=== PATIENT | female | born 1945 | race Hispanic/Latino ===

== ENCOUNTER 2016-12-06 08:20 | Day surgery (SDC) | payer MEDICARE, OTHER ==
--- NOTE | 2016-12-06 11:38 | History and Physical Report ---
History of Present Illness Date of examination: 12/06/16 Chief complaint: rt. thyroid nodule Medications and Allergies Allergies Allergy/AdvReac Type Severity Reaction Status Date / Time No Known Allergies Allergy Verified 12/06/16 08:41 Home Medications Medication Instructions Recorded Confirmed Last Taken Type Biotin [Biotin] 1 cap PO DAILY 12/06/16 12/06/16 12/05/16 History 1 cap Cimetidine (Nf) [Tagamet (Nf)] 300 mg PO BID 12/06/16 12/06/16 12/05/16 History 300mg Clobetasol Propionate [Clobetasol 5 ml TRANSDERMA DAILY 12/06/16 12/06/16 History Propionate] 5ml Fexofenadine/Pseudoephedrine 1 tab PO DAILY 12/06/16 12/06/16 12/05/16 History [Haily-D 12 Hour Tablet] Levothyroxine [Synthroid] 112 mcg PO DAILY 12/06/16 12/06/16 12/05/16 History 112mcg Lovastatin Tab [Mevacor Tab] 40 mg PO DAILY 12/06/16 12/06/16 12/05/16 History Exam Vital Signs Temp Pulse Resp BP Pulse Ox 97.7 F 64 16 135/74 96 12/06/16 08:40 12/06/16 08:40 12/06/16 08:40 12/06/16 08:40 12/06/16 08:40
--- NOTE | 2016-12-06 11:41 | Procedure Note ---
Date of procedure: 12/06/16 Pre-op diagnosis: dominant rt. thyroid nodule Post-op diagnosis: same Procedure: u/s guided asp./bx Findings: n/a Anesthesia: local Surgeon: VICKY ENRIQUEZ Estimated blood loss: none Pathology: list (thyroid asp/bx) Specimen disposition: to lab Condition: stable Disposition: same day
[2016-12-06 11:43] VITALS: BP 128/80
--- NOTE | 2016-12-06 12:40 | Ultrasound Report ---
Thyroid biopsy: The patient was sent for biopsy at unspecified site. According to the patient a palpable finding was noted on the right. Ultrasound of the thyroid gland demonstrated the right lobe to measure 14 x 21 x 50 mm. The left lobe measures 15 x 14 x 44 mm. The isthmus is 4 mm thick. Both lobes were diffusely inhomogeneous. In the inferior right lobe a dominant circumscribed hypoechogenic mass is present measuring 2.6 cm. The in the inferior left lobe is a 13 mm homogeneously hypoechoic and well-circumscribed mass. No calcifications identified. The dominant right mass was chosen for sampling. The skin was cleansed. 1% lidocaine used for local anesthesia. Under ultrasound guidance sampling of the mass was performed using a 25-gauge needle with aspiration and a Rotex needle. The attending pathologist indicated that adequate sampling was obtained. No complications encountered. Impression: Indeterminate right thyroid mass. Successful aspiration/biopsy.
== END 2016-12-06 12:00 | disposition home or self-care (01) ==
LOC: OPU 08:20 → EDSTATUS 09:00 → OPU 12:00
PROVIDERS: ATTEND Internal Medicine Hematology & Oncology
DX: E04.1 Nontoxic single thyroid nodule (principal)
CPT/HCPCS: 60100; 76942; 88112; 88172; 88173; 88305

== ENCOUNTER 2017-12-19 10:29 | Outpatient (CLI) | payer MEDICARE, OTHER ==
--- NOTE | 2017-12-19 13:33 | Mammography Report ---
BILATERAL DIGITAL SCREENING MAMMOGRAM with CAD : 12/19/17 10:29:00 CLINICAL: Routine screening.History of bilateral benign biopsies. COMPARISON:11/23/15 FINDINGS: The breasts are heterogeneously dense, which may obscure small masses. Left upper outer surgical clips. Mild bilateral upper-outer benign postsurgical changes. No mass, architectural distortion or suspicious calcifications. IMPRESSION: No mammographic evidence of malignancy. BI-RADS CATEGORY: 2 -- Benign RECOMMENDATION: Routine mammographic screening in one year. COMMENT: Patient follow-up letters are generated by our [employer] application.
== END 2017-12-19 10:30 | disposition home or self-care (01) ==
LOC: SPVWC 10:29
PROVIDERS: ATTEND Family Medicine
DX: Z12.31 Encounter for screening mammogram for malignant neoplasm of breast (principal); Z98.890 Other specified postprocedural states
CPT/HCPCS: 77067

== ENCOUNTER 2019-04-07 11:14 | Outpatient (CLI) | payer MEDICARE, OTHER ==
--- NOTE | 2019-04-07 15:23 | Mammography Report ---
BILATERAL DIGITAL SCREENING MAMMOGRAM WITH CAD INDICATION: Routine screening mammography. 3 of bilateral benign biopsies. TECHNIQUE: Digital bilateral 2D mammography was obtained in the craniocaudal and mediolateral obliq ue projections. This examination was interpreted with the benefit of Computer-Aided Detection analysi s. COMPARISON: 11/23/2015 and 12/19/2017 FINDINGS: Breast Density: The breasts are heterogeneously dense, which may obscure small masses. No mass, suspicious architectural distortion or suspicious calcifications. Stable left outer and uppe r postsurgical scar with surgical clips. The left breast is smaller than the right. IMPRESSION:No mammographic evidence of malignancy. BI-RADS Category 2: Benign. No mammographic evidence of malignancy. Recommend routine screening ma mmography in one year. A "normal" or negative report should not discourage follow up or biopsy of a clinically significant f inding. A written summary of these findings will be mailed to the patient. The patient will be entered into a mammography reporting system which will generate a reminder letter for the patient's next appointmen t at the appropriate interval. The [employer] recommends yearly mammograms starting at age 40 and continuing as l marlene as a woman is in good health. Breast MRI is recommended for women with an approximate 20-25% or greater lifetime risk of breast cancer, including women with a strong family history of breast or ova william cancer or who have been treated for Hodgkin's disease. Signer Name: Sd Seaman MD Signed: 04/07/2019 3:19 PM Workstation Name: [id number]
== END 2019-04-07 11:15 | disposition home or self-care (01) ==
LOC: SPVWC 11:14
PROVIDERS: ATTEND Family Medicine
DX: Z12.31 Encounter for screening mammogram for malignant neoplasm of breast (principal); E78.00 Pure hypercholesterolemia, unspecified; E03.9 Hypothyroidism, unspecified
CPT/HCPCS: 77067

== ENCOUNTER 2020-05-13 10:23 | Outpatient (CLI) | payer MEDICARE, OTHER ==
--- NOTE | 2020-05-13 15:36 | Mammography Report ---
DIGITAL SCREENING MAMMOGRAM WITH CAD, 05/13/2020 INDICATION: Routine screening mammography. TECHNIQUE: Digital bilateral 2D mammography was obtained in the craniocaudal and mediolateral obliq ue projections. This examination was interpreted with the benefit of Computer-Aided Detection analysi s. COMPARISON: Prior mammograms 04/07/2019 and 12/19/2017 FINDINGS: Breast Density: There are scattered areas of fibroglandular density. There is no evidence of dominant mass, suspicious calcifications or architectural distortion in eithe r breast. There is stable benign postsurgical change seen in both breasts and stable benign-appearing calcifications. There has been no significant change compared with the prior examinations. IMPRESSION: Follow up recommendation: Routine yearly BI-RADS Category 2: Benign. A "normal" or negative report should not discourage follow up or biopsy of a clinically significant f inding. A written summary of these findings will be mailed to the patient. The patient will be entered into a mammography reporting system which will generate a reminder letter for the patient's next appointmen t at the appropriate interval. The [employer] recommends yearly mammograms starting at age 40 and continuing as l marlene as a woman is in good health. Breast MRI is recommended for women with an approximate 20-25% or greater lifetime risk of breast cancer, including women with a strong family history of breast or ova william cancer or who have been treated for Hodgkin's disease. Signer Name: Mari Baker MD Signed: 05/13/2020 3:31 PM Workstation Name: [id number]
== END 2020-05-13 10:24 | disposition home or self-care (01) ==
LOC: SPVWC 10:23
PROVIDERS: ATTEND Family Medicine
DX: Z12.31 Encounter for screening mammogram for malignant neoplasm of breast (principal)
CPT/HCPCS: 77067

== ENCOUNTER 2021-11-22 13:49 | Outpatient (CLI) | payer MEDICARE ==
--- NOTE | 2021-11-23 17:48 | Mammography Report ---
DIGITAL SCREENING MAMMOGRAM WITH CAD, 11/22/2021 CLINICAL INFORMATION / INDICATION: Routine screening mammography. Z12.31 TECHNIQUE: Digital bilateral 2D mammography was obtained in the craniocaudal and mediolateral obliqu e projections. This examination was interpreted with the benefit of Computer-Aided Detection analysis . COMPARISON: I or mammogram 05/13/2020 and 04/07/2019 FINDINGS: Breast Density: There are scattered areas of fibroglandular density. No dominant mass, suspicious calcifications, or architectural distortion in either breast. There is stable benign postsurgical change in both breasts. There has been no significant change comp ared with the prior examinations. IMPRESSION: No mammographic evidence of malignancy. Follow up recommendation: Routine yearly BI-RADS Category 2: BENIGN. A "normal" or negative report should not discourage follow up or biopsy of a clinically significant f inding. A written summary of these findings will be mailed to the patient. The patient will be entered into a mammography reporting system which will generate a reminder letter for the patient's next appointmen t at the appropriate interval. The [employer] recommends yearly mammograms starting at age 40 and continuing as l marlene as a woman is in good health. Breast MRI is recommended for women with an approximate 20-25% or greater lifetime risk of breast cancer, including women with a strong family history of breast or ova william cancer or who have been treated for Hodgkin's disease. Signer Name: Mari Baker MD Signed: 11/23/2021 5:44 PM Workstation Name: [employer]
== END 2021-11-22 13:50 | disposition home or self-care (01) ==
LOC: SPVWC 13:49
DX: Z12.31 Encounter for screening mammogram for malignant neoplasm of breast (principal); N64.89 Other specified disorders of breast
CPT/HCPCS: 77067